=== PATIENT | female | born 1950 | race Two or more races ===

== ENCOUNTER 2016-07-09 11:09 | Emergency (ER) | payer OTHER ==
[~2016-07-09] VITALS: Ht 165.1 cm; Wt 103.4 kg
[~2016-07-09 11:09] MED LIST: CIPROFLOXACIN500 M2 ORAL; NKM; NORCO 5-325 TA1 EACH ORAL; PHENAZOPYRIDIN100 MG ORAL; RANITIDINE HCL150 MG ORAL
[2016-07-09 11:28] VITALS: BP 137/89
[2016-07-09] MEDS ORDERED: Morphine Sulfate 2mg/ml Inj IVP ONE (11:45)
[2016-07-09 12:11] LABS: APPEARANCE,URINE CLEAR; KETONES,URINE NEGATIVE (NEGATIVE); LEUKOCYTE ESTERASE ,URINE NEGATIVE (NEGATIVE); NITRITE,URINE NEGATIVE (NEGATIVE); PH,URINE 6 (4.5-8.0); PROTEIN,URINE NEGATIVE (NEGATIVE); UROBILINOGEN,URINE NORMAL MG/DL (0.0-1.0)
[2016-07-09 12:12] LABS: BASOPHILS % (AUTO) 1.8 % (0.0-2.0); EOSINOPHILS % (AUTO) 2.2 % (0.0-3.0); LYMPHOCYTES % (AUTO) 32.6 % (20.0-45.0); MEAN CORPUSCULAR HEMOGLOBIN 26.7 PG (27.0-31.0); MEAN CORPUSCULAR HGB CONC 31.1 G/DL (32.0-36.0); MEAN CORPUSCULAR VOLUME 86 FL (80-99); MEAN PLATELET VOLUME 7.7 FL (6.5-10.1); MONOCYTES % (AUTO) 7.2 % (1.0-10.0); NEUTROPHILS % (AUTO) 56.2 % (45.0-75.0); PLATELET COUNT 274 K/UL (150-450); RED BLOOD COUNT 5.28 M/UL (4.20-5.40); RED CELL DISTRIBUTION WIDTH 14.6 % (11.6-14.8); WHITE BLOOD COUNT 9.2 K/UL (4.8-10.8)
[2016-07-09 12:19] LABS: BACTERIA,URINE OCCASIONAL /HPF; SQUAMOUS EPITHELIAL CELL,UR OCCASIONAL /LPF (NONE/OCC); WBC,URINE 0-2 /HPF (0 - 2)
[2016-07-09 12:30] VITALS: BP 127/58
[2016-07-09 12:30] LABS: ALANINE AMINOTRANSFERASE 8 U/L (3-33); ALBUMIN/GLOBULIN RATIO 1.1 (1.0-2.7); ANION GAP 14 (5-15); ASPARTATE AMINO TRANSFERASE 16 U/L (5-40); CALCIUM 9.7 mg/dL (8.6-10.2); CARBON DIOXIDE 25 mEQ/L (20-30); CHLORIDE 101 mEQ/L (98-107); CREATININE 0.7 mg/dL (0.5-0.9); GLOMERULAR FILTRATION RATE > 60 mL/min (>60); HEMOLYSIS 0; LIPASE 20 U/L (< 60); POTASSIUM 4.1 mEQ/L (3.4-4.9); SODIUM 140 mEQ/L (135-145); TOTAL PROTEIN 7.9 g/dL (6.6-8.7); TROPONIN I < 0.30 ng/mL (<=0.30)
[2016-07-09 13:30] VITALS: BP 134/55
--- NOTE | 2016-07-09 13:52 | Diagnostic Imaging Report ---
Indication: PAIN Technique: One view of the chest Comparison: none Findings: Lungs and pleural spaces are clear. Heart size is upper limit normal. Impression: No acute process
--- NOTE | 2016-07-09 14:09 | Diagnostic Imaging Report ---
Clinical Indication: Severe left-sided abdominal pain Technique: No oral contrast utilized, per emergency room physician request IV administration nonionic contrast. Venous phase spiral acquisition obtained through the abdomen and pelvis. Multiplanar reconstructions were generated. Total dose length product 1016 mGycm. CTDIvol(s) 19 mGy. Dose reduction achieved using automated exposure control Comparison: 02/29/2016 noncontrast study Findings: The appendix is not definitely demonstrated, but there are no findings to suggest acute appendicitis. No evidence of diverticulosis or diverticulitis. No small bowel distention. No free or loculated intraperitoneal air or fluid. The duodenum, stomach, distal esophagus are unremarkable. The liver demonstrates a tiny subcentimeter low-attenuation lesion in segment 5, too small to characterize. The gallbladder, bile ducts, pancreas, spleen, adrenals, kidneys, ureters, bladder are unremarkable. There is a surgical scar in the lower abdominal anterior soft tissues. No pelvic mass or adenopathy. Uterus is absent, presumably surgically The heart is upper limits of normal in size. The lung bases are clear except for minimal atelectasis in the lingula. The bones demonstrate degenerative spondylosis changes. No significant change from the prior exam. Impression: No acute abnormality Segment 5 low-attenuation liver lesion, too small characterize, most likely a benign cyst or bile hamartomas. No further followup necessary Other findings as noted, including trace lingular atelectasis, mild degenerative spondylosis, surgically absent uterus The CT scanner at [facility] is accredited by the [employer] and the scans are performed using protocols designed to limit radiation exposure to as low as reasonably achievable to attain images of sufficient resolution adequate for diagnostic evaluation.
[2016-07-09] MEDS ORDERED: PEPCID20 MG ORAL (14:23)
[2016-07-09 14:27] VITALS: BP 134/55
[2016-07-09] MEDS ORDERED: Famotidine 20 MG/ 2ML VIAL IVP ONE (14:30)
--- NOTE | 2016-07-10 07:19 | Emergency Room Report ---
History of Present Illness General Chief Complaint: Abdominal Pain Source: Patient Present Illness HPI [id number] with known gastritis presents with 3 days constant left abd pain with nausea. No change with eating. Worsens overnight. Already on omeprazole for "gastritis." last endoscopy was 15 years ago. Denies associated fever/chills, diarrhea, vomiting, previous abd surgery. Takes omeprazole daily. Allergies: Coded Allergies: No Known Allergies (Unverified , 08/28/15) Patient History Past Medical History: other - gastritis Past Surgical History: none Pertinent Family History: none Social History: Denies: alcohol use, drug use, smoking Last Menstrual Period: na Now: No Immunizations: UTD Reviewed Nursing Documentation: PMH: Agreed, PSxH: Agreed Nursing Documentation-PMH Past Medical History: No History, Except For Hx Hypertension: Yes Hx Gastrointestinal Problems: Yes - Gastritis Review of Systems All Other Systems: negative except mentioned in HPI Physical Exam Vital Signs Date Time Temp Pulse Resp B/P Pulse Ox O2 Delivery O2 Flow Rate FiO2 07/09/16 11:20 98.8 54 18 137/89 98 Room Air Sp02 EP Interpretation: reviewed, normal General Appearance: normal inspection, well appearing, no apparent distress, alert, GCS 15, non-toxic Head: normocephalic, atraumatic Eyes: bilateral eye EOMI, bilateral eye PERRL ENT: normal ENT inspection, hearing grossly normal, normal voice Neck: normal inspection, full range of motion, supple, no bony tend Respiratory: normal inspection, lungs clear, normal breath sounds, no respiratory distress, no retraction, no wheezing Cardiovascular #1: regular rate, rhythm, no edema Gastrointestinal: normal inspection, normal bowel sounds, soft, non-distended, no guarding, no hernia, no pulsatile mass, no rebound, other - Mild left sided abd focal ttp. No rebound or guarding Genitourinary: no CVA tenderness Musculoskeletal: normal inspection, back normal, normal range of motion, Avis' s Sign negative Neurologic: normal inspection, alert, oriented x3, responsive, cryogenics engineer III-XII nml as tested, motor strength/tone normal, speech normal Psychiatric: normal inspection, judgement/insight normal, mood/affect normal Skin: normal inspection, normal color, no rash Lymphatic: normal inspection Medical Decision Making Diagnostic Impression: Primary Impression: Gastritis Qualified Codes: K29.50 - Unspecified chronic gastritis without bleeding ER Course Labs: No leuks. H&H stable. Lipase negative. Troponin negative. UA negative for infection CTAP: No acute findings Improved with IV pepcid Likely acute worsening of known chronic gastritis Advised continue omeprazole, add pepcid PMD followup for GI referral for endoscopy DC home Last Vital Signs Date Time Temp Pulse Resp B/P Pulse Ox O2 Delivery O2 Flow Rate FiO2 07/09/16 14:27 98.8 54 15 134/55 99 Room Air Status: improved Disposition: HOME, SELF-CARE Condition: Stable Scripts Famotidine (PEPCID) 20 Mg Tablet 20 MG ORAL BID for 14 Days, #30 TAB 0 Refills Prov: CHIQUITA TURNER M.D. 07/09/16 Patient Instructions: Gastritis, Adult, [id number] Additional Instructions: - Take Pepcid twice daily for 14 days - Continue taking Omeprazole - Ask your doctor for a referral for endoscopy CHIQUITA TURNER M.D. Jul 10, 2016 07:19
== END 2016-07-09 14:35 | disposition home or self-care (01) ==
LOC: EMR 12:27 → UNDOADMIN 13:02 → 3E 13:02 → EDBEDREQ 13:08 → CANBEDREQ 14:21
DX: K29.70 Gastritis, unspecified, without bleeding (principal); I10 Essential (primary) hypertension
CPT/HCPCS: 36415; 71010; 74177; 80053; 81003; 83690; 84484; 85025; 96374; 99284; Q9967; S0028